=== PATIENT | female | born 1950 | race Two or more races ===

== ENCOUNTER → 2022-06-22 | Outpatient (CLI) | payer MEDICARE, BC ==
[~2022-06-22] VITALS: Ht 1 cm; Wt 1.0 kg
[~2022-06-22] MED LIST: cloNIDine HCL 0.1 MG TAB ONE; cloNIDine HCL 0.1 MG TAB PO ONE
[2022-06-22 11:37] VITALS: BP 206/97
[2022-06-22 14:18] VITALS: BP 154/65
== END | disposition home or self-care (01) ==
LOC: CHF HDHVI 11:42
PROVIDERS: ATTEND Internal Medicine Cardiovascular Disease
DX: I10 Essential (primary) hypertension (principal)
CPT/HCPCS: G0463

== ENCOUNTER → 2022-07-03 | Outpatient (CLI) | payer MEDICARE, BC ==
[~2022-07-03] VITALS: Ht 162.6 cm; Wt 63.0 kg
== END | disposition short-term general hospital (02) ==
LOC: Rad HDHVI 12:49
PROVIDERS: ATTEND Internal Medicine Cardiovascular Disease
DX: I10 Essential (primary) hypertension (principal); I25.2 Old myocardial infarction; R06.02 Shortness of breath; E78.5 Hyperlipidemia, unspecified; E11.9 Type 2 diabetes mellitus without complications; Z95.1 Presence of aortocoronary bypass graft; Z82.49 Family history of ischemic heart disease and other diseases of the circulatory system; Z79.899 Other long term (current) drug therapy
CPT/HCPCS: 78452; 93017; 96374; A9500

== ENCOUNTER → 2022-07-04 | Outpatient (CLI) | payer MEDICARE, BC | END | disposition home or self-care (01) | LOC: Rad HDHVI 15:49 | PROVIDERS: ATTEND Internal Medicine Cardiovascular Disease | DX: I07.1 Rheumatic tricuspid insufficiency (principal); I11.9 Hypertensive heart disease without heart failure | CPT/HCPCS: 93306 ==

== ENCOUNTER → 2023-05-13 | Outpatient (CLI) | payer MEDICARE, BC ==
[~2023-05-13] MED LIST changes: +ISOS60TA24 PO; +METF-370 PO; +SACU1TAB7 PO; -cloNIDine HCL 0.1 MG TAB ONE; -cloNIDine HCL 0.1 MG TAB PO ONE
[2023-05-13 14:00] VITALS: BP 198/87; PULSE 68; RESP 16; O2SAT 98
[2023-05-13 14:22] VITALS: BP 196/87; PULSE 69; RESP 18; O2SAT 98
== END | disposition home or self-care (01) ==
LOC: CHF HDHVI 13:52
PROVIDERS: ATTEND Internal Medicine Cardiovascular Disease
DX: Z01.818 Encounter for other preprocedural examination (principal); R94.31 Abnormal electrocardiogram [ECG] [EKG]; I25.118 Atherosclerotic heart disease of native coronary artery with other forms of angina pectoris; R06.02 Shortness of breath; I10 Essential (primary) hypertension; R00.2 Palpitations
CPT/HCPCS: 93005; G0463

== ENCOUNTER 2023-05-16 07:41 | Day surgery (SDC) | payer MEDICARE, BC ==
[2023-05-13 16:21] LABS: Basophils # (auto) 0.1 10 ^3/uL (0-0.2); Basophils % (auto) 0.8 % (0.0-2.0); Eosinophils # (auto) 0.6 10 ^3/uL (0-0.8); Eosinophils % (auto) 5.7 % (0.0-7.0); Hemoglobin 11.4 g/dL (12.2-16.2); Lymphocytes # (auto) 2.7 10 ^3/uL (0.4-5.4); Lymphocytes % (auto) 27.6 % (10.0-50.0); Mean Corpuscular Hemoglobin 29.6 pg (28.0-32.0); Mean Corpuscular Hgb Conc. 33.6 g/dL (32.0-36.0); Monocytes # (auto) 0.7 10 ^3/uL (0-1.3); Monocytes % (auto) 7.2 % (0.0-12.0); Neutrophils # (auto) 5.8 10 ^3/uL (1.6-8.6); Neutrophils % (auto) 58.7 % (37.0-80.0); Red Blood Cells 3.86 10^6/uL (4.0-5.20); Red Cell Distribution Width 12.2 % (11.8-14.3); White Blood Cell 9.8 10^3/uL (4.4-10.8)
[2023-05-13 16:33] LABS: INR 0.99 (0.9-1.15); Partial Thromboplastin Time 27.1 SEC (24.5-34.5); Prothrombin Time 10.4 sec (9.3-11.8)
[2023-05-13 16:48] LABS: Alanine Aminotransferase 10 U/L (7-40); Albumin 4.2 g/dL (3.2-4.8); Alkaline Phosphatase 60 U/L (46-116); Anion Gap 7 (5-15); Aspartate Aminotransferase 11 U/L (13-40); BUN/Creatinine Ratio 22.1 (10.0-20.0); Bilirubin, Total 0.5 mg/dL (0.2-1.0); Blood Urea Nitrogen 17 mg/dL (9-23); Calcium 9.9 mg/dL (8.5-10.1); Carbon Dioxide 26 mmol/L (20-30); Chloride 110 mmol/L (98-107); Glucose 139 mg/dL (74-106); Potassium 4.5 mmol/L (3.5-5.1); Sodium 143 mmol/L (136-145); Total Protein 6.6 g/dL (5.7-8.2)
[2023-05-16] VITALS (9 sets, daily range): BP systolic 148–176; BP diastolic 53–75; PULSE 75–84; RESP 12–16; TEMP 98.4; O2SAT 92–96
[~2023-05-16] VITALS: Ht 162.6 cm; Wt 67.1 kg
[2023-05-16] MEDS ORDERED: LIDOCAINE 2%HCL (LOCAL ANESTH.) INJ 20ML MDV ONE (11:39)
[2023-05-16] MEDS ORDERED: IOHEXOL 350 MG/ML 100ML IJ ONE (11:39)
[2023-05-16] MEDS ORDERED: fentaNYL CITRATE 100 MCG/2 ML VL ONE (11:43)
[2023-05-16] MEDS ORDERED: ANGIOMAX 250 MG VIAL IV ONE (11:43)
[2023-05-16] MEDS ORDERED: MIDAZOLAM HCL 2MG/2ML 2ml VIAL (1mg/ml) ONE (11:43)
[2023-05-16] MEDS ORDERED: SODIUM CHL 0.9% 0 ML ONE (11:43)
[2023-05-16] MEDS ORDERED: NITROGLYCERIN 0.4MG/DOSE SPRAY 4.9GM ONE (12:05)
[2023-05-16] MEDS ORDERED: hydrALAZINE HCL 20 MG/ML VL ONE (12:13)
== END 2023-05-16 14:52 | disposition home or self-care (01) ==
LOC: CATH 07:41
PROVIDERS: ATTEND Internal Medicine Cardiovascular Disease
DX: I25.10 Atherosclerotic heart disease of native coronary artery without angina pectoris (principal); I25.2 Old myocardial infarction; I73.9 Peripheral vascular disease, unspecified; Z95.5 Presence of coronary angioplasty implant and graft; Z88.8 Allergy status to other drugs, medicaments and biological substances; Z87.891 Personal history of nicotine dependence
CPT/HCPCS: 36252; 36415; 80053; 85025; 85610; 85730; 93458; C1894; J0360; J1644; J2250; J3010; Q9967; 99152

== ENCOUNTER → 2023-11-27 | Outpatient (CLI) | payer MEDICARE, BC ==
[~2023-11-27] MED LIST changes: +ISOS1TAB29 PO; -ISOS60TA24 PO
== END | disposition home or self-care (01) ==
LOC: Rad HDHVI 14:31
PROVIDERS: ATTEND Internal Medicine Cardiovascular Disease
DX: I65.23 Occlusion and stenosis of bilateral carotid arteries (principal); I10 Essential (primary) hypertension; E78.5 Hyperlipidemia, unspecified; E11.9 Type 2 diabetes mellitus without complications
CPT/HCPCS: 93880

== ENCOUNTER → 2023-12-03 | Outpatient (CLI) | payer MEDICARE, BC | END | disposition home or self-care (01) | LOC: Rad HDHVI 14:01 | PROVIDERS: ATTEND Internal Medicine Cardiovascular Disease | DX: I51.7 Cardiomegaly (principal); R06.02 Shortness of breath | CPT/HCPCS: 93306 ==

== ENCOUNTER → 2023-12-09 | Outpatient (CLI) | payer MEDICARE, BC ==
[~2023-12-09] VITALS: Ht 162.6 cm; Wt 67.1 kg
[~2023-12-09] MED LIST changes: +ADENOSINE 56 MG in GIVE UN-DILUTED 0 ML IV ONE; +ADENOSINE 90 MG/30 ML INJ IV ONE
[2023-12-09] MEDS: cloNIDine HCL 0.1 MG TAB PO ONE (15:41)
[2023-12-09] MEDS: cloNIDine HCL 0.1 MG TAB ONE (15:42)
== END | disposition home or self-care (01) ==
LOC: Rad HDHVI 13:55
PROVIDERS: ATTEND Internal Medicine Cardiovascular Disease
DX: I11.0 Hypertensive heart disease with heart failure (principal); I50.43 Acute on chronic combined systolic (congestive) and diastolic (congestive) heart failure; I25.2 Old myocardial infarction; E11.9 Type 2 diabetes mellitus without complications; E78.00 Pure hypercholesterolemia, unspecified; I34.0 Nonrheumatic mitral (valve) insufficiency; I25.5 Ischemic cardiomyopathy; I25.10 Atherosclerotic heart disease of native coronary artery without angina pectoris; Z82.49 Family history of ischemic heart disease and other diseases of the circulatory system; Z95.1 Presence of aortocoronary bypass graft
CPT/HCPCS: 78452; 93005; 96374; 96375; A9500; J0153

== ENCOUNTER 2024-07-28 18:15 | Inpatient (IN) | payer MEDICARE, BC ==
[~2024-07-28] VITALS: Ht 162.6 cm; Wt 67.7 kg
[~2024-07-28 18:15] MED LIST changes: -ADENOSINE 56 MG in GIVE UN-DILUTED 0 ML IV ONE; -ADENOSINE 90 MG/30 ML INJ IV ONE; +CLOP75TA28 PO; +HYDR-4798 PO; +ISOS1TAB28 PO; +METF-372 PO; +NIFE1TAB36 PO; +OMEP-448 PO; +THYR60TA PO
[2024-07-28 18:29] VITALS: PULSE 97; RESP 18; O2SAT 100
--- NOTE | 2024-07-28 18:43 | ED.PDOC ---
General HPI Comments 73 year old female presents to the ED with a chief complaint of LT flank pain onset 2 days. Patient states she has been experiencing LT flank pain for the past 2 days, noticed it worsen today around 15:00. She took Mousie, did not improve pain, states she experienced similar pain in the past when she had kidney stones. BP upon arrival 203/84, states she took HTN medication about 5 minutes prior to ED arrival. PMHx HTN, DM, kidney stones, hypothyroid. Denies nausea, vomiting, diarrhea, dysuria, hematuria, dizziness, headache, chest pain, shortness of breath. No other symptoms or modifying factors present at this time. Chief Complaint: Flank Pain Time Seen by MD: 18:24 Reviewed notes: Medications, Allergies Allergies: Coded Allergies: Epinephrine (Verified Allergy, Unknown, 07/03/22) Home Meds Reported Medications Sacubitril-Valsartan (Entresto 49-51 mg) 1 Tab Tab, 2 TAB PO BID for HTN, TAB 05/13/23 Isosorbide Mononitrate (Isosorbide Mononitrate Er) 60 Mg Tab, 60 MG PO DAILY for htn, MG 05/13/23 Metformin Hydrochloride (Metformin Hcl) 500 Mg Tab, 1000 MG PO BID for 30 Days, MG 05/13/23 Information Source: Patient Mode of Arrival: Ambulatory Severity: Moderate Timing: Days Duration: Since onset Prehospital treatment: Pain Meds (norco) Onset: Spontaneous Symptoms: Other (flank pain) History of: Kidney stone Location: (L)Flank Modifying factors: None associated signs and symptoms: Flank Pain Past Medical History PAST MEDICAL HISTORY: DM, HTN, Kidney Stones, Thyroid Surgical History: Hysterectomy FOOD SERVICE SPECIALIST History: No Pertinent FOOD SERVICE SPECIALIST History Family History Family History: Reviewed,noncontributory to illness, No family hx of Cancer, No family hx of DM, No family hx of Heart angélica, No family hx of HTN, No family hx of Kidney angélica, No family hx of Liver angélica, No family hx of Lung angélica, No family hx of Stroke Social History Smoker: Non-Smoker Alcohol: Denies ETOH Use Drugs: Denies Drug Use Lives In: Home Constitutional: denies: chills, diaphoresis, fatigue, fever, malaise, sweats, weakness, others EENTM: denies: blurred vision, double vision, ear bleeding, ear discharge, ear drainage, ear pain, ear ringing, eye pain, eye redness, hearing loss, mouth pain, mouth swelling, nasal discharge, nose bleeding, nose congestion, nose pain, photophobia, tearing, throat pain, throat swelling, voice changes, others Respiratory: denies: cough, hemoptysis, orthopnea, SOB at rest, shortness of breath, SOB with excertion, stridor, wheezing, others Cardiovascular: denies: chest pain, dizzy spells, diaphoresis, Dyspnea on exertion, edema, irregular heart beat, left arm pain, lightheadedness, palpitations, PND, syncope, others Gastrointestinal: denies: abdomen distended, abdominal pain, blood streaked bowels, constipated, diarrhea, dysphagia, difficulty swallowing, hematemesis, melena, nausea, poor appetite, poor fluid intake, rectal bleeding, rectal pain, vomiting, others Genitourinary: reports: flank pain; denies: abnormal vagina bleeding, burning, dyspareunia, dysuria, frequency, hematuria, incontinence, pain, , vagina discharge, urgency, others Neurological: denies: dizziness, fainting, headache, left sided numbness, left sided weakness, numbness, paresthesia, pre-existing deficit, right sided numbness, right sided weakness, seizure, speech problems, tingling, tremors, weakness, others Musculoskeletal: denies: back pain, gout, joint pain, joint swelling, muscle pain, muscle stiffness, neck pain, others Integumetry: denies: bruises, change in color, change in hair/nails, dryness, laceration, lesions, lumps, rash, wounds, others Allergic/Immunocompromised: denies: Difficulty Healing, Frequent Infections, Hives, Itching, others Hematologic/Lymphatic: denies: anemia, blood clots, easy bleeding, easy bruising, swollen glands, others Endocrine: denies: excessive hunger, excessive sweating, excessive thirst, excessive urination, flushing, intolerance to cold, intolerance to heat, unexplained weight gain, unexplained weight loss, others Psychiatric: denies: anxiety, bipolar disorder, depression, hopeless, panic disorder, schizophrenia, sleepless, suicidal, others All Other Systems: Reviewed and Negative Physical Exam General Appearance: Mild Distress, Obese HEENT: Other (pupils symmetric, no facial asymmetry, moist mucous membranes) Neck: Full Range of Motion, Normal Inspection Respiratory: Lungs Clear, No Accessory Muscle Use, No Respiratory Distress, Normal Breath Sounds Cardiovascular: No Edema, No JVD, Regular Rate/Rhythm Breast Exam: Deferred Gastrointestinal: Tenderness (L upper flank tenderness), Other Genitalia: Deferred Pelvic: Deferred Rectal: Deferred Extremities: Normal inspection, Normal range of motion, Non-tender, No pedal edema Neurologic: Alert (oriented x 4) Cerebellar Function: NOT DONE Reflexes: NOT DONE Skin: Dry, Normal Color, Warm Lymphatic: NOT DONE Was a procedure done? Was a procedure done?: No Differential Diagnosis Kidney stone (Female): Aortic dissection, Pancreatitis, Renal failure, Urinary obstruction, Urolithiasis Urinary Problem (Female): Pyelonephritis, UTI X-Ray, Labs, Meds, VS Vital Signs Date Time Temp Pulse Resp B/P (MAP) Pulse Ox O2 Delivery O2 Flow Rate FiO2 07/28/24 20:38 86 20 218/88 07/28/24 20:38 98.8 86 20 218/88 (131) 96 98.8 07/28/24 20:38 86 20 96 Room Air 07/28/24 18:29 97.7 97 18 203/84 (123) 100 97.7 07/28/24 18:29 97.7 97 18 203/84 (123) 100 07/28/24 18:29 97 18 100 Room Air* 0 21 Lab Test 07/28/24 18:49 07/28/24 18:26 Range/Units White Blood Count 7.7 4.4-10.8 10^3/uL Red Blood Count 4.18 4.0-5.20 10^6/uL Hemoglobin 12.0 L 12.2-16.2 g/dL Hematocrit 36.0 36.0-46.0 % Mean Corpuscular Volume 86.1 80.0-100.0 fL Mean Corpuscular Hemoglobin 28.8 28.0-32.0 pg Mean Corpuscular Hemoglobin Concent 33.5 32.0-36.0 g/dL Red Cell Distribution Width 12.4 11.8-14.3 % Platelet Count 350 140-450 10^3/uL Mean Platelet Volume 7.9 6.9-10.8 fL Neutrophils (%) (Auto) 68.0 37.0-80.0 % Lymphocytes (%) (Auto) 21.0 10.0-50.0 % Monocytes (%) (Auto) 7.2 0.0-12.0 % Eosinophils (%) (Auto) 2.7 0.0-7.0 % Basophils (%) (Auto) 1.1 0.0-2.0 % Neutrophils # (Auto) 5.3 1.6-8.6 10 ^3/uL Lymphocytes # (Auto) 1.6 0.4-5.4 10 ^3/uL Monocytes # (Auto) 0.6 0-1.3 10 ^3/uL Eosinophils # (Auto) 0.2 0-0.8 10 ^3/uL Basophils # (Auto) 0.1 0-0.2 10 ^3/uL Nucleated Red Blood Cells 0.1 % Sodium Level 138 136-145 mmol/L Potassium Level 3.9 3.5-5.1 mmol/L Chloride Level 103 98-107 mmol/L Carbon Dioxide Level 26 20-31 mmol/L Anion Gap 9 5-15 Blood Urea Nitrogen 11 9-23 mg/dL Creatinine 0.95 0.550-1.02 mg/dL Glomerular Filtration Rate Calc 62 >90 mL/min BUN/Creatinine Ratio 11.6 10.0-20.0 Serum Glucose 259 H 74-106 mg/dL Calcium Level 10.5 H 8.7-10.4 mg/dL Urine Color Straw Yellow Urine Clarity Clear Clear Urine pH 6.0 5.0-9.0 Urine Specific Wagoner 1.007 1.001-1.035 Urine Protein 3+ H Negative Urine Ketones Negative Negative Urine Blood 1+ H Negative /uL Urine Nitrite Negative Negative Urine Bilirubin Negative Negative Urine Urobilinogen Normal Negative mg/dL Urine Leukocyte Esterase Negative Negative /uL Urine RBC 2 0 - 4 /hpf Urine Microscopic WBC 1 0-5 /HPF Urine Squamous Epithelial Cells None seen <5 /hpf Urine Bacteria None seen None Seen /hpf Urine Glucose 2+ H Normal mg/dL Current Medications Medications (Trade) Dose Ordered Sig/Bree Route Start Time Stop Time Status Last Admin Morphine Sulfate 8 mg ONCE ONCE IV 07/28/24 18:45 07/28/24 18:46 DC 07/28/24 20:38 Ondansetron HCl (Zofran) 4 mg ONCE ONCE IV 07/28/24 18:45 07/28/24 18:46 DC 07/28/24 20:37 [facility] [id number] [place] [id number] Ph: [phone] DIAGNOSTIC IMAGING Diagnostic Imaging Report : [id number] Signed PATIENT: DARIUS JEFF ACCT: [id number] UNIT: [id number] : 1950 LOC: ER ROOM / BED: / AGE / SEX: 73 / F ADM STATUS: REG ER SERVICE 37 ORDERING PHYSICIAN: MONI CHAPMAN MD PROCEDURE(s): ABPL - CT AB PEL WO CON-NO ORAL OR IV REASON: L flank pain ORDER NUMBER(s): [id number], ACCESSION NUMBER(s): [id number] Exam: CT CT AB PEL WO CON-NO ORAL OR IV History: L flank pain Comparison Study: None available at time of dictation. TECHNIQUE: Multidetector CT of the abdomen was performed from lung bases to pubic symphysis. Imaging was performed without IV contrast. Axial, coronal and sagittal multiplanar reformats were obtained from the axial data set by the technologist. Radiation Dose Information: CT Dose: CTDI volume is 7.78 mGy. Dose-length product is 416.56 mGy*cm. FINDINGS: Evaluation of solid organs is limited due to lack of intravenous contrast use. Findings: Lung Bases: No acute or significant lung base finding. Normal heart size. No pleural or pericardial effusion. Sternal wire sutures in place. Liver: The liver is normal in size. No focal lesions. Gallbladder and Biliary Tree: Cholelithiasis Spleen: Unremarkable Pancreas: The pancreas is grossly normal in appearance. Adrenal Glands: Unremarkable Kidneys: Kidneys are grossly normal without calculi or hydronephrosis. Bladder: Grossly unremarkable for degree of distention. Bowel: The stomach is grossly normal in appearance. Small bowel and colon are normal in caliber and distribution. The appendix is not visualized; however, no secondary findings of acute appendicitis identified. Ascites: Absent Lymphadenopathy: No mesenteric, retroperitoneal or periportal lymphadenopathy. Abdominal Wall and Mesentery: Unremarkable. Vasculature: The visualized abdominal aorta is normal in size and caliber. Evaluation of abdominal and pelvic vessels is limited due to lack of intravenous contrast. Pelvic Organs: Unremarkable Musculoskeletal: No aggressive focal bony lesions, acute fractures or dislocation. Soft tissues: Unremarkable IMPRESSION: 1. Cholelithiasis 2. Radiation optimization: All CT scans at this facility use at least one of these dose optimization techniques: automated exposure control mA and/or kV adjustment per patient size (includes targeted exams where dose is matched to clinical indication) or iterative reconstruction. HS:Y ATED BY: KAYLAH BERGERON Jr., DO DICTATED DATE/TIME: 07/28/241928 SIGNED BY: KAYLAH BERGERON Jr., SIGNED DATE/TIME: 07/28/241928 CC: X-Ray, Labs, Meds, VS Comment 73 yo F with h/o htn, dm, cad, thyroid dz and kidney stones c/o L flank pain despite taking Mousie at home vs remarkable for bp 203/84 exam remarkable for L upper flank tenderness to palpation ct ab/pel: IMPRESSION: 1. Cholelithiasis CBC unremarkable, BMP remarkable for glucose 259, UA protein, blood and glucose pt treated with the following in ED: morphine 8mg IV, zofran 4mg IV with transient improvement of pain. vs stable, bp improving. On re-evaluation, patient states pain is coming back, so Dilaudid 1 mg IV was ordered. plan is to admit for pain control Time of 1ST Reevaluation: 18:54 Reevaluation 1ST: Unchanged Patient Education/Counseling: Diagnosis, Treatment, Prognosis Family Education/Counseling: No Family Present Additional Information The following tests were ordered, and results were reviewed by me: CBC, UA, CT AB PEL WO CONTRAST, BMP I reviewed and agreed with the following test results read by other providers: CT AB PEL WO CONTRAST, I discussed treatment and results with medical personnel and: patient Departure 1 Departure Time of Disposition: 21:27 Impression: Primary Impression: Left flank pain Additional Impression: Intractable pain Disposition: ADMITTED INPATIENT Admit to: Med Surg Condition: Fair Critical Care Note Critical Care Time?: No Stability Stability form required: No Heart Score Heart Score: Heart Score Response (Comments) Value History N/A 0 EKG N/A 0 Age N/A 0 Risk Factors N/A 0 Troponin N/A 0 Total 0 I personally scribed for MONI CHAPMAN MD ([email or web address]) on 07/28/24 at 18:43. Electronically submitted by Alana William ([email or web address]). I personally scribed for MON[facility] CHAPMAN MD ([facility] on 07/28/24 at 20:16. Electronically submitted by Alana William ([email or web address]). I personally scribed for MONI CHAPMAN MD ([email or web address]) on 07/28/24 at 20:17. Electronically submitted by Alana William ([email or web address]). I personally scribed for MONI CHAPMAN MD ([facility] on 07/28/24 at 20:25. Electronically submitted by Alana William ([email or web address]). I personally scribed for MONI CHAPMAN MD ([facility]) on 07/28/24 at 20:58. Electronically submitted by Alana William ([email or web address]). MONI CHAPMAN MD Jul 28, 2024 18:43
[2024-07-28 19:02] LABS: Basophils # (auto) 0.1 10 ^3/uL (0-0.2); Basophils % (auto) 1.1 % (0.0-2.0); Eosinophils # (auto) 0.2 10 ^3/uL (0-0.8); Eosinophils % (auto) 2.7 % (0.0-7.0); Lymphocytes # (auto) 1.6 10 ^3/uL (0.4-5.4); Mean Corpuscular Hemoglobin 28.8 pg (28.0-32.0); Mean Corpuscular Hgb Conc. 33.5 g/dL (32.0-36.0); Mean Corpuscular Volume 86.1 fL (80.0-100.0); Monocytes # (auto) 0.6 10 ^3/uL (0-1.3); Monocytes % (auto) 7.2 % (0.0-12.0); Neutrophils # (auto) 5.3 10 ^3/uL (1.6-8.6); Nucleated Red Blood Cells % 0.1 %; Platelet Count (auto) 350 10^3/uL (140-450); Red Blood Cells 4.18 10^6/uL (4.0-5.20); Red Cell Distribution Width 12.4 % (11.8-14.3); White Blood Cell 7.7 10^3/uL (4.4-10.8)
[2024-07-28 19:08] LABS: Chloride 103 mmol/L (98-107); Potassium 3.9 mmol/L (3.5-5.1); Sodium 138 mmol/L (136-145)
[2024-07-28 19:09] LABS: Anion Gap 9 (5-15); Carbon Dioxide 26 mmol/L (20-31)
[2024-07-28 19:14] LABS: BUN/Creatinine Ratio 11.6 (10.0-20.0); Blood Urea Nitrogen 11 mg/dL (9-23)
[2024-07-28 19:18] LABS: Calcium 10.5 mg/dL (8.7-10.4); Glucose 259 mg/dL (74-106)
--- NOTE | 2024-07-28 19:32 | DVH ---
Exam: CT CT AB PEL WO CON-NO ORAL OR IV History: L flank pain Comparison Study: None available at time of dictation. TECHNIQUE: Multidetector CT of the abdomen was performed from lung bases to pubic symphysis. Imaging was performed without IV contrast. Axial, coronal and sagittal multiplanar reformats were obtained fr om the axial data set by the technologist. Radiation Dose Information: CT Dose: CTDI volume is 7.78 mGy. Dose-length product is 416.56 mGy*cm. FINDINGS: Evaluation of solid organs is limited due to lack of intravenous contrast use. Findings: Lung Bases: No acute or significant lung base finding. Normal heart size. No pleural or pericardial effusion. Sternal wire sutures in place. Liver: The liver is normal in size. No focal lesions. Gallbladder and Biliary Tree: Cholelithiasis Spleen: Unremarkable Pancreas: The pancreas is grossly normal in appearance. Adrenal Glands: Unremarkable Kidneys: Kidneys are grossly normal without calculi or hydronephrosis. Bladder: Grossly unremarkable for degree of distention. Bowel: The stomach is grossly normal in appearance. Small bowel and colon are normal in caliber and d istribution. The appendix is not visualized; however, no secondary findings of acute appendicitis id entified. Ascites: Absent Lymphadenopathy: No mesenteric, retroperitoneal or periportal lymphadenopathy. Abdominal Wall and Mesentery: Unremarkable. Vasculature: The visualized abdominal aorta is normal in size and caliber. Evaluation of abdominal a nd pelvic vessels is limited due to lack of intravenous contrast. Pelvic Organs: Unremarkable Musculoskeletal: No aggressive focal bony lesions, acute fractures or dislocation. Soft tissues: Unremarkable IMPRESSION: 1. Cholelithiasis 2. Radiation optimization: All CT scans at this facility use at least one of these dose optimization te chniques: automated exposure control mA and/or kV adjustment per patient size (includes targeted exa ms where dose is matched to clinical indication) or iterative reconstruction. HS:Y
[2024-07-28 19:40] LABS: Urine Bacteria None Seen /hpf (None Seen)
[2024-07-28 19:49] LABS: Urine Blood 1+ /uL (Negative); Urine Clarity Clear (Clear); Urine Protein, UAD 3+ (Negative); Urine Specific Gravity 1.007 (1.001-1.035); Urine Squamous Epithelial Cell None Seen /hpf (<5); Urine Urobilinogen Normal (Negative); Urine WBC 1 /HPF (0-5)
[2024-07-28 20:11] LABS: Urine Color STRAW (Yellow)
[2024-07-28] MEDS: ONDANSETRON HCL 4 MG/2 ML VIAL IV ONE (20:37)
[2024-07-28] MEDS: MORPHINE SULFATE 4 MG/ML SYR/VIAL IV ONE (20:38)
[2024-07-28] MEDS: HYDROcodone-ACET 7.5/325MG TAB PO ONE (22:15)
[2024-07-28] MEDS: hydrALAZINE HCL 20 MG/ML VL IV ONE (22:30)
--- NOTE | 2024-07-28 22:49 | DVH ---
Date: 07/28/2024 10:41 PM Examination: XY KUB ABDOMEN SINGLE VIEW History: rule out kidnsy stones Comparison: None TECHNIQUE: Frontal views of the abdomen was obtained. FINDINGS: Bowel gas pattern is unremarkable with no dilated loops of large or small bowel. No abnormal calcific density identified. No acute osseous abnormality noted. IMPRESSION: Nonobstructive bowel gas pattern. No abnormal calcific density identified.
[2024-07-29] MEDS: HYDROcodone-ACET 7.5/325MG TAB PO ONE
--- NOTE | 2024-07-29 00:08 | DVHHPRES ---
History of Present Illness Resident Creating Document: DEANGELO PABON RESIDENT Reason for Visit: left flank pain History of Present Illness Chief Complaint: Left flank pain for two days, worsening on the day of presentation. History of Present Illness: 73-year-old female with a history of coronary artery bypass grafting, uncontrolled hypertension, diabetes mellitus, kidney stones, and hypothyroidism presents to the emergency department with left flank pain for the past week, which worsened around 15:00 on the day of admission. The pain was not relieved with Elliott taken at home. She has a history of kidney stones with similar pain in the past. No associated nausea, vomiting, diarrhea, dysuria, hematuria, chest pain, or shortness of breath. On arrival, BP was 203/84 mmHg. She took her home antihypertensive medication just prior to ED arrival. Past Medical History: Cardiovascular: Coronary artery bypass grafting (CABG), hypertension (poorly controlled) Endocrine: Diabetes mellitus, hypothyroidism Renal: History of kidney stones Other: No significant gynecologic history Past Surgical History: Coronary artery bypass grafting (CABG) Medications at Home: Sacubitril/Valsartan (Entresto) 100 mg PO Nifedipine 30 mg PO Isosorbide Mononitrate 30 mg PO Clopidogrel 75 mg PO Metformin 1000 mg PO BID Allergies: Epinephrine Family History: No known family history of cardiovascular disease, hypertension, diabetes, kidney disease, liver disease, lung disease, or stroke. Social History: Smoking: Never smoker Alcohol Use: Denies Illicit Drug Use: Denies Review of Systems Constitutional: No: Fever, Chills, Sweats, Weakness, Malaise, Other Eyes: No: Pain, Vision change, Conjunctivae inflammation, Eyelid inflammation, Other, Redness ENT: No: Ear pain, Ear discharge, Nose pain, Nose discharge, Nose congestion, Mouth pain, Mouth swelling, Throat pain, Throat swelling, Other Respiratory: No: Cough, Dry, Shortness of breath, SOB with excertion, Wheezing, Hemoptysis, Pleuritic Pain, Sputum, Wheezing, Other Cardiovascular: No: Chest Pain, Palpitations, Orthopnea, Paroxysmal Noc. Dyspnea, Edema, Lt Headedness, Other Gastrointestinal: No: Nausea, Vomiting, Abdominal Pain, Diarrhea, Constipation, Melena, Hematochezia, Other Genitourinary: No Dysuria, No Frequency, No Incontinence, No Hematuria, No Retention, No Other Musculoskeletal: No: other, neck pain, shoulder pain, arm pain, back pain, hand pain, leg pain, foot pain Skin: No: Rash, Lesions, Jaundice, Bruising, Other Neurological: No: Weakness, Numbness, Incoordination, Change in speech, Confusion, Seizures, Other Allergies: Coded Allergies: Epinephrine (Verified Allergy, Unknown, 07/03/22) Medications Current Medications Medications Dose Ordered Sig/Bree Route Start Time Stop Time Status Last Admin Dose Admin Sacubitril/ Valsartan 2 tab BID PO 07/29/24 00:00 Nifedipine 30 mg BID PO 07/29/24 10:00 Isosorbide Mononitrate 30 mg BID PO 07/29/24 10:00 UNV Exam Vital Signs Vital Signs Date Time Temp Pulse Resp B/P (MAP) Pulse Ox O2 Delivery O2 Flow Rate FiO2 07/28/24 21:07 83 16 196/86 07/28/24 20:38 98.8 96 98.8 07/28/24 20:38 Room Air 07/28/24 18:29 0 21 General Appearance: Alert, Oriented X3, Cooperative, No acute distress HEENT: Atraumatic, PERRLA, EOMI, Mucous membr. moist/pink Respiratory: Clear to auscultation, Normal air movement Cardiovascular: Regular rate, Normal S1, Normal S2, Other (sternotomy scar) Abdominal: Normal bowel sounds, Soft Extremities: No clubbing, No cyanosis, No edema Skin: No rashes, No breakdown, No significant lesion Neuro: Normal gait, Normal speech, Strength at 5/5 X4 ext Psych/Mental Status: Mental status NL, Mood NL Labs/Xrays Labs Test 07/28/24 18:49 07/28/24 18:26 Range/Units White Blood Count 7.7 4.4-10.8 10^3/uL Red Blood Count 4.18 4.0-5.20 10^6/uL Hemoglobin 12.0 L 12.2-16.2 g/dL Hematocrit 36.0 36.0-46.0 % Mean Corpuscular Volume 86.1 80.0-100.0 fL Mean Corpuscular Hemoglobin 28.8 28.0-32.0 pg Mean Corpuscular Hemoglobin Concent 33.5 32.0-36.0 g/dL Red Cell Distribution Width 12.4 11.8-14.3 % Platelet Count 350 140-450 10^3/uL Mean Platelet Volume 7.9 6.9-10.8 fL Neutrophils (%) (Auto) 68.0 37.0-80.0 % Lymphocytes (%) (Auto) 21.0 10.0-50.0 % Monocytes (%) (Auto) 7.2 0.0-12.0 % Eosinophils (%) (Auto) 2.7 0.0-7.0 % Basophils (%) (Auto) 1.1 0.0-2.0 % Neutrophils # (Auto) 5.3 1.6-8.6 10 ^3/uL Lymphocytes # (Auto) 1.6 0.4-5.4 10 ^3/uL Monocytes # (Auto) 0.6 0-1.3 10 ^3/uL Eosinophils # (Auto) 0.2 0-0.8 10 ^3/uL Basophils # (Auto) 0.1 0-0.2 10 ^3/uL Nucleated Red Blood Cells 0.1 % Sodium Level 138 136-145 mmol/L Potassium Level 3.9 3.5-5.1 mmol/L Chloride Level 103 98-107 mmol/L Carbon Dioxide Level 26 20-31 mmol/L Anion Gap 9 5-15 Blood Urea Nitrogen 11 9-23 mg/dL Creatinine 0.95 0.550-1.02 mg/dL Glomerular Filtration Rate Calc 62 >90 mL/min BUN/Creatinine Ratio 11.6 10.0-20.0 Serum Glucose 259 H 74-106 mg/dL Calcium Level 10.5 H 8.7-10.4 mg/dL Urine Color Straw Yellow Urine Clarity Clear Clear Urine pH 6.0 5.0-9.0 Urine Specific Paulina 1.007 1.001-1.035 Urine Protein 3+ H Negative Urine Ketones Negative Negative Urine Blood 1+ H Negative /uL Urine Nitrite Negative Negative Urine Bilirubin Negative Negative Urine Urobilinogen Normal Negative mg/dL Urine Leukocyte Esterase Negative Negative /uL Urine RBC 2 0 - 4 /hpf Urine Microscopic WBC 1 0-5 /HPF Urine Squamous Epithelial Cells None seen <5 /hpf Urine Bacteria None seen None Seen /hpf Urine Glucose 2+ H Normal mg/dL Assessment/Plan Assessment/Plan Imaging & Labs: CT Abdomen/Pelvis (without contrast): Cholelithiasis noted. No evidence of hydronephrosis or acute obstruction. KUB: normal CBC: Unremarkable BMP: Glucose 259, otherwise unremarkable UA: Protein, blood, and glucose present Assessment & Plan: 73-year-old female with a history of CABG, uncontrolled hypertension, diabetes, and kidney stones presenting with left flank pain. #Left flank pain: Monitor for signs of worsening pain, fever, or obstruction. Pain management with Morphine 8 mg IV initially, later required Dilaudid 1 mg IV for persistent pain. UA: blood, protein present: urine culture ordered #Hypertensive urgency (203/84 on arrival) Already on multiple antihypertensives (Entresto, Nifedipine, Isosorbide). Blood pressure improved slightly in ED; continue close monitoring. Hydralazine IV given Clonidine added Labetalol PRN #Cholelithiasis (incidental finding on CT scan) No acute cholecystitis findings. F/u outpatient #Diabetes mellitus (elevated glucose 259 in ED) hba1c ordered mild insulin sliding scale #Hypercalcemia Pending CMP am f/u outpatient Disposition: Admit to Med-Surg for further pain management and blood pressure control. Dr Gonzalez PCP consulted Case discussed with Dr Zapien Time spent on care 23 min Plan discussed with: Patient, Other (rn) My Orders Orders - DEANGELO PABON RESIDENT Procedure Category Date Status Time Admit ADMIT 07/28/24 Transmitted 22:02 *Cons[address] Dr[address] Gonzalez CONS 07/28/24 Transmitted [place] 22:02 Kub Abdomen Single XY 07/28/24 Resulted View 22:02 Cardiac DIET 07/29/24 Transmitted Diet-2gna,Lofat,Lochol Breakfast Sacubitril-Valsartan PHA 07/29/24 In Process (Entresto 24-26 Mg 00:00 Nifedipine Er PHA 07/29/24 In Process (Procardia Xl 10:00 Isosorbide PHA 07/29/24 Pending Mononitrate Tablet 10:00 Date of Service: Jul 28, 2024 Billing Provider: ANTONI ZAPIEN MD Common Visit Codes: [id number] INP/OBS CARE (HIGH) DEANGELO PABON RESIDENT Jul 29, 2024 00:08 ANTONI ZAPIEN MD Jul 29, 2024 23:55
[2024-07-29] MEDS: cloNIDine HCL 0.1 MG TAB PO SCH (01:00)
[2024-07-29] MEDS ORDERED: LABETALOL HCL 20 MG/4 ML VL IV PRN (01:00)
[2024-07-29] MEDS: SACUBITRIL-VALSARTAN 24mg/26mg TAB PO SCH (03:22)
[2024-07-29] MEDS: CLOPIDOGREL BISULFATE 75 MG TAB PO ONE (03:22)
[2024-07-29 03:37] VITALS: BP 134/61; PULSE 72; RESP 18; TEMP 97.8; O2SAT 97
[2024-07-29] MEDS: HYDROMORPHONE HCL 1 MG/ML INJ IV ONE (03:48)
[2024-07-29] MEDS: ACCU-CHEK COMFORT CURVE STRIP VI ONE (04:59)
[2024-07-29] MEDS: InsuLIN REG 1unit/0.01ml Soln (100units/ml) SC ONE (05:04)
[2024-07-29] MEDS: DEXTROSE (50%) 50ML SYRG IV ONE (05:06)
[2024-07-29 08:51] VITALS: BP 141/55; PULSE 74; RESP 16; TEMP 98.4; O2SAT 96
[2024-07-29] MEDS: KETOROLAC TROMETH 30 MG/ML 1ML VIAL IV PRN (09:15)
[2024-07-29] MEDS: NIFEdipine ER 30 MG TAB PO SCH (09:29)
[2024-07-29] MEDS ORDERED: ISOSORBIDE MONONITRATE ER 60 MG TAB PO SCH (10:00)
[2024-07-29] MEDS: MORPHINE SULFATE INJ 2 MG/ml SYRG IV PRN (12:14)
[2024-07-29] MEDS ORDERED: DEXTROSE (50%) 50ML SYRG IV PRN (12:15)
[2024-07-29] MEDS: ISOSORBIDE MONONITRATE ER 60 MG TAB PO SCH (12:44)
--- NOTE | 2024-07-29 12:51 | DVH ---
RENAL ULTRASOUND CLINICAL HISTORY: left flank pain TECHNIQUE: Multiple ultrasound images of the kidneys and bladder were obtained. COMPARISON: [Comparison] FINDINGS: The right kidney measures 10.9 cm in length. The left kidney measures 11.7 cm. The kidneys demonstrat e appropriate echotexture without evidence of a discrete renal lesion, nephrolithiasis or hydronephro sis. Bladder appears within normal limits with prevoid volume measuring 72 cc. IMPRESSION: 1. Unremarkable renal ultrasound. HS:Y
[2024-07-29] MEDS ORDERED: OMEP-335 PO (12:55)
[2024-07-29] MEDS ORDERED: GLIP5TAB21 PO (12:55)
[2024-07-29 13:00] VITALS: BP 149/54; PULSE 76; RESP 18; TEMP 98.2; O2SAT 97
[2024-07-29 14:00] LABS: Albumin 4.1 g/dL (3.2-4.8); Bilirubin, Direct 0.1 mg/dL (<0.3); Bilirubin, Total 0.5 mg/dL (0.2-1.0); Total Protein 6.3 g/dL (5.7-8.2)
--- NOTE | 2024-07-29 14:19 | DVHPN2 ---
Progress Note - Dictate Date Seen: Jul 29, 2024 Medical Necessity Reason Pt with a Central, PICC or Fol: No Subjective PT WITH LEFT FLANK PAIN UA NEGATIVE POSITIVE CHOLECYSTITIS HX OF CABG DIABETES HTN vital signs Vital Sign Date Time Temp Pulse Resp B/P (MAP) Pulse Ox O2 Delivery O2 Flow Rate FiO2 07/29/24 12:44 76 18 149/54 07/29/24 08:51 98.4 96 98.4 07/29/24 03:37 Room Air* 0 21 Total Intake and Output 07/28/24 07/28/24 07/29/24 15:00 23:00 07:00 Intake Total 240 ml Balance 240 ml medications Current Medications Medications Dose Ordered Sig/Bree Route Start Time Stop Time Status Last Admin Dose Admin Sacubitril/ Valsartan 2 tab BID PO 07/29/24 00:00 07/29/24 09:28 2 TAB Nifedipine 30 mg BID PO 07/29/24 10:00 07/29/24 09:29 30 MG Clonidine HCl 0.2 mg BID PO 07/29/24 01:00 Labetalol HCl 10 mg Q2HPRN PRN IV 07/29/24 01:00 Isosorbide Mononitrate 30 mg DAILY PO 07/29/24 10:00 07/29/24 12:44 30 MG Ketorolac Tromethamine 30 mg Q6HPRN PRN IV 07/29/24 08:45 08/03/24 08:44 07/29/24 09:15 30 MG Morphine Sulfate 2 mg Q4HPRN PRN IV 07/29/24 12:15 07/29/24 12:14 2 MG Diagnostic Test (Pha) 1 strip ACHS 07/29/24 17:00 Insulin Human Regular ACHS SC 07/29/24 17:00 Dextrose 50 ml UD PRN IV 07/29/24 12:15 laboratory and microbiology Laboratory Tests 07/28/24 18:49 Test 07/28/24 18:49 Range/Units Serum Glucose 259 H 74-106 mg/dL Problem List LEFT FLANK PAIN UA NEGATIVE POSITIVE CHOLECYSTITIS HX OF CABG DIABETES HTN Assessment/Plan ABX Plan discussed with: Patient JACKIE GATES MD Jul 29, 2024 14:19
[2024-07-29 17:00] VITALS: BP 163/89; PULSE 76; RESP 18; TEMP 98.2; O2SAT 95
[2024-07-29] MEDS: ACCU-CHEK COMFORT CURVE STRIP VI SCH (17:00)
[2024-07-29] MEDS: InsuLIN REG 1unit/0.01ml Soln (100units/ml) SC SCH (17:07)
[2024-07-29] MEDS ORDERED: cloNIDine HCL 0.1 MG TAB PO PRN (17:45)
[2024-07-29] MEDS: NIFEdipine ER 30 MG TAB PO ONE (18:05)
[2024-07-29 18:22] VITALS: BP 184/92; PULSE 81; RESP 17; TEMP 97.9; O2SAT 97
[2024-07-29 21:00] VITALS: BP 166/63; PULSE 82; RESP 19; TEMP 97.8; O2SAT 98
[2024-07-30] VITALS (7 sets, daily range): BP systolic 125–150; BP diastolic 59–68; PULSE 72–80; RESP 16–19; TEMP 97.8–98.6; O2SAT 95–97
[2024-07-30 06:17] LABS: Alanine Aminotransferase 14 U/L (7-40); Alkaline Phosphatase 70 U/L (46-116); Calcium 10.2 mg/dL (8.7-10.4); Carbon Dioxide 25 mmol/L (20-31); Glucose 86 mg/dL (74-106); Potassium 3.8 mmol/L (3.5-5.1)
[2024-07-30 06:18] LABS: Albumin 4.1 g/dL (3.2-4.8); Anion Gap 10 (5-15); Bilirubin, Total 0.4 mg/dL (0.2-1.0); Blood Urea Nitrogen 13 mg/dL (9-23); Sodium 142 mmol/L (136-145); Total Protein 6.2 g/dL (5.7-8.2)
[2024-07-30 06:28] LABS: Aspartate Aminotransferase 11 U/L (13-40); Chloride 107 mmol/L (98-107)
[2024-07-30] MEDS ORDERED: GLIP-110 PO (09:41)
--- NOTE | 2024-07-30 10:38 | DVHPN2 ---
Progress Note - Dictate Date Seen: Jul 30, 2024 Medical Necessity Reason Pt with a Central, PICC or Fol: No Subjective PT WITH LEFT FLANK PAIN UA NEGATIVE POSITIVE CHOLECYSTITIS HX OF CABG DIABETES HTN vital signs Vital Sign Date Time Temp Pulse Resp B/P (MAP) Pulse Ox O2 Delivery O2 Flow Rate FiO2 07/30/24 10:30 72 16 125/59 07/30/24 09:00 98.2 97 98.2 07/29/24 20:00 Room Air* 0 21 Total Intake and Output 07/29/24 07/29/24 07/30/24 15:00 23:00 07:00 Intake Total 650 ml Balance 650 ml medications Current Medications Medications Dose Ordered Sig/Bree Route Start Time Stop Time Status Last Admin Dose Admin Sacubitril/ Valsartan 2 tab BID PO 07/29/24 00:00 07/30/24 10:24 2 TAB Nifedipine 30 mg BID PO 07/29/24 10:00 07/30/24 10:24 30 MG Isosorbide Mononitrate 30 mg DAILY PO 07/29/24 10:00 07/30/24 10:24 30 MG Ketorolac Tromethamine 30 mg Q6HPRN PRN IV 07/29/24 08:45 08/03/24 08:44 07/29/24 09:15 30 MG Morphine Sulfate 2 mg Q4HPRN PRN IV 07/29/24 12:15 07/30/24 10:30 2 MG Diagnostic Test (Pha) 1 strip ACHS 07/29/24 17:00 07/30/24 06:16 1 STRIP Insulin Human Regular ACHS SC 07/29/24 17:00 07/29/24 21:24 3 UNITS Dextrose 50 ml UD PRN IV 07/29/24 12:15 Clonidine HCl 0.1 mg Q6HP PRN PO 07/29/24 17:45 laboratory and microbiology Laboratory Tests 07/30/24 05:39 07/28/24 18:49 Test 07/30/24 05:39 Range/Units Serum Glucose 86 74-106 mg/dL Problem List LEFT FLANK PAIN UA NEGATIVE POSITIVE CHOLECYSTITIS HX OF CABG DIABETES HTN Assessment/Plan ABX Plan discussed with: Patient JACKIE GATES MD Jul 30, 2024 10:38
--- NOTE | 2024-08-03 16:25 | DVHDS2 ---
Discharge Summary Date of Admission Jul 28, 2024 at 22:02 Date of Discharge: Jul 30, 2024 Admitting Diagnosis FLANK ABD PAIN Labs/Diagnostic Data: Laboratory Results Test 07/30/24 16:48 07/30/24 05:39 07/29/24 04:45 07/28/24 18:49 POC Glucose 60 mg/dl (70-106) Sodium Level 142 mmol/L (136-145) Potassium Level 3.8 mmol/L (3.5-5.1) Chloride Level 107 mmol/L (98-107) Carbon Dioxide Level 25 mmol/L (20-31) Anion Gap 10 (5-15) Blood Urea Nitrogen 13 mg/dL (9-23) Creatinine 1.00 mg/dL (0.550-1.02) Glomerular Filtration Rate Calc 59 mL/min (>90) BUN/Creatinine Ratio 13.0 (10.0-20.0) Serum Glucose 86 mg/dL (74-106) Calcium Level 10.2 mg/dL (8.7-10.4) Total Bilirubin 0.4 mg/dL (0.2-1.0) Aspartate Amino Transferase (AST) 11 U/L (13-40) Alanine Aminotransferase (ALT) 14 U/L (7-40) Alkaline Phosphatase 70 U/L (46-116) Total Protein 6.2 g/dL (5.7-8.2) Albumin 4.1 g/dL (3.2-4.8) Hemoglobin A1c 7.3 % A1C (<5.7) Direct Bilirubin 0.1 mg/dL (<0.3) Thyroid Stimulating Hormone (TSH) 1.39 uIU/mL (0.55-4.78) White Blood Count 7.7 10^3/uL (4.4-10.8) Red Blood Count 4.18 10^6/uL (4.0-5.20) Hemoglobin 12.0 g/dL (12.2-16.2) Hematocrit 36.0 % (36.0-46.0) Mean Corpuscular Volume 86.1 fL (80.0-100.0) Mean Corpuscular Hemoglobin 28.8 pg (28.0-32.0) Mean Corpuscular Hemoglobin Concent 33.5 g/dL (32.0-36.0) Red Cell Distribution Width 12.4 % (11.8-14.3) Platelet Count 350 10^3/uL (140-450) Mean Platelet Volume 7.9 fL (6.9-10.8) Neutrophils (%) (Auto) 68.0 % (37.0-80.0) Lymphocytes (%) (Auto) 21.0 % (10.0-50.0) Monocytes (%) (Auto) 7.2 % (0.0-12.0) Eosinophils (%) (Auto) 2.7 % (0.0-7.0) Basophils (%) (Auto) 1.1 % (0.0-2.0) Neutrophils # (Auto) 5.3 10 ^3/uL (1.6-8.6) Lymphocytes # (Auto) 1.6 10 ^3/uL (0.4-5.4) Monocytes # (Auto) 0.6 10 ^3/uL (0-1.3) Eosinophils # (Auto) 0.2 10 ^3/uL (0-0.8) Basophils # (Auto) 0.1 10 ^3/uL (0-0.2) Nucleated Red Blood Cells 0.1 % Test 07/28/24 18:26 Urine Color Straw (Yellow) Urine Clarity Clear (Clear) Urine pH 6.0 (5.0-9.0) Urine Specific [place] 1.007 (1.001-1.035) Urine Protein 3+ (Negative) Urine Ketones Negative (Negative) Urine Blood 1+ /uL (Negative) Urine Nitrite Negative (Negative) Urine Bilirubin Negative (Negative) Urine Urobilinogen Normal mg/dL (Negative) Urine Leukocyte Esterase Negative /uL (Negative) Urine RBC 2 /hpf (0 - 4) Urine Microscopic WBC 1 /HPF (0-5) Urine Squamous Epithelial Cells None seen /hpf (<5) Urine Bacteria None seen /hpf (None Seen) Urine Glucose 2+ mg/dL (Normal) Other Laboratory Tests 07/30/24 05:39 07/28/24 18:49 Brief Hx & Hospital Course: LEFT FLANK PAIN UA NEGATIVE POSITIVE CHOLECYSTITIS HX OF CABG DIABETES HTN Assessment/Plan ABX NO INFECTION MUSCULAR SKELETAL PAIN Condition at Discharge: Good Final Diagnosis/Problems List MUSCULOSKELETAL PAIN RENOVASCULAR HTN COSTOCHONDRITIS Discharge Disposition: Home Discharge Instruct/Medications Diet: Cardiac 2g Na,low cholest Activity: No Restrictions, As Tolerated Follow Up/Referral: FOLLOW UP IN [address] MEJIA Medications: DR. MEJIA EXPLAINED TO PATIENT MEDICATION INSTRUCTIONS OVER PHONE Discharge Statement: "Patient was advised to return to the ER or call 911 if any headaches, dizziness, shortness of breath, chest pain, abdominal pain, bleeding, fevers, or worsening of medical condition. Patient was counseled about treatment plan, medications, possible side effects, patientverbalized understanding. All questions were answered to the best of my ability. This discharge took greater then 30 minutes in planning, reviewing documentation, counseling the patient, and discussing with other team members." ASSESSMENT ASSESSMENT Assessment MUSCULOSKELETAL PAIN JACKIE GATES MD Aug 03, 2024 16:25
== END 2024-07-30 20:30 | disposition home or self-care (01) | DRG 446 ==
LOC: ER 18:15 → OVERFLOW 22:02 → EAST 07-29 18:18
PROVIDERS: ADMIT Internal Medicine Geriatric Medicine; ATTEND Internal Medicine Geriatric Medicine
DX: K81.9 Cholecystitis, unspecified (principal); M94.0 Chondrocostal junction syndrome [Tietze]; E83.52 Hypercalcemia; I10 Essential (primary) hypertension; E03.9 Hypothyroidism, unspecified; E11.65 Type 2 diabetes mellitus with hyperglycemia; Z79.4 Long term (current) use of insulin; Z90.710 Acquired absence of both cervix and uterus; Z95.1 Presence of aortocoronary bypass graft; Z87.442 Personal history of urinary calculi; I15.0 Renovascular hypertension; R10.9 Unspecified abdominal pain
CPT/HCPCS: 36415; 74018; 74176; 76775; 80048; 80053; 80076; 81001; 82962; 83036; 84443; 85025; 87086; G0378; J1815; J1885; J2405

== ENCOUNTER → 2024-11-20 | Outpatient (CLI) | payer MEDICARE, BC ==
[~2024-11-20] MED LIST changes: +GLIP-110 PO; -ISOS1TAB29 PO; -METF-370 PO
== END | disposition home or self-care (01) ==
LOC: Rad HDHVI 10:57
PROVIDERS: ATTEND Internal Medicine Cardiovascular Disease
DX: I10 Essential (primary) hypertension (principal)
CPT/HCPCS: 93306

== ENCOUNTER 2024-12-31 06:41 | Inpatient (IN) | payer MEDICARE, BC ==
[2024-12-28 11:52] LABS: Hematocrit 34.8 % (36.0-46.0); Hemoglobin 12.1 g/dL (12.2-16.2); Mean Corpuscular Hemoglobin 29.3 pg (28.0-32.0); Mean Corpuscular Volume 84.1 fL (80.0-100.0); Nucleated Red Blood Cells % 0.0 %
[2024-12-28 12:04] LABS: INR 0.97 (0.9-1.15); Partial Thromboplastin Time 27.5 SEC (24.5-34.5); Prothrombin Time 10.3 sec (9.3-11.8)
[2024-12-28 12:11] LABS: Chloride 108 mmol/L (98-107); Potassium 4.9 mmol/L (3.5-5.1); Sodium 139 mmol/L (136-145)
[2024-12-28 12:12] LABS: Anion Gap 9 (5-15); Carbon Dioxide 22 mmol/L (20-31)
[2024-12-28 12:13] LABS: Calcium 10.4 mg/dL (8.7-10.4)
[2024-12-28 12:17] LABS: BUN/Creatinine Ratio 22.2 (10.0-20.0); Blood Urea Nitrogen 22 mg/dL (9-23)
[2024-12-28 12:20] LABS: Glucose 146 mg/dL (74-106)
[2024-12-31] VITALS (12 sets, daily range): BP systolic 82–129; BP diastolic 35–67; PULSE 61–91; RESP 12–18; TEMP 96–98.1; O2SAT 91–99
[~2024-12-31] VITALS: Ht 162.6 cm; Wt 63.9 kg
[~2024-12-31 06:41] MED LIST changes: +ASPI81CH49 PO; +NIFE1TAB31 PO; -NIFE1TAB36 PO
[2024-12-31] MEDS: IOHEXOL 350 MG/ML 100ML IJ ONE ×2 (07:32→09:51)
[2024-12-31] MEDS: ATROPINE SULF 1 MG/10ml SYR ONE (07:43)
[2024-12-31] MEDS: ANGIOMAX 250 MG VIAL IV ONE (07:43)
[2024-12-31] MEDS: fentaNYL CITRATE 100 MCG/2 ML VL ONE (07:43)
[2024-12-31] MEDS: PHENYLEPHRINE HCL 10 MG/ML VL ONE (07:43)
[2024-12-31] MEDS: GLYCOPYRROLATE 0.2 MG/ML 1ML VIAL ONE ×2 (07:43→10:07)
[2024-12-31] MEDS: MIDAZOLAM HCL 2MG/2ML 2ml VIAL (1mg/ml) ONE (07:44)
[2024-12-31] MEDS: SODIUM CHL 0.9% 50 ML ONE (07:44)
[2024-12-31] MEDS: LIDOCAINE 2%HCL (LOCAL ANESTH.) INJ 20ML MDV ONE (07:44)
[2024-12-31] MEDS: NITROGLYCERIN 0.4MG/DOSE SPRAY 4.9GM ONE (09:38)
[2024-12-31] MEDS: HYDROcodone-ACET 10/325MG TAB PO ONE (11:00)
--- NOTE | 2024-12-31 11:12 | DVHOP ---
DATE OF SURGERY: 12/31/2024 PROCEDURES PERFORMED: * Selective left and right carotid angiography. * Selective left and right cerebral angiography. * Angioplasty with stent placement of the right internal carotid artery with thrombectomy with a Shockwave device because of AV calcification. * Conscious sedation was given to the patient. Post surgery there were no complications. Neurological status was intact. DESCRIPTION OF PROCEDURE: The patient was prepped and draped under sterile condition. Xylocaine 1% was used to anesthetize the right groin. Using a Cook needle, right femoral artery was engaged with Seldinger technique, a 6-Austrian sheath to the right femoral artery. Using 6-Austrian JR4 diagnostic catheter, selective left and right carotid and cerebral angiography was performed. Following that, the 6-Austrian diagnostic system was exchanged for a 6-Austrian interventional system. The 6-Austrian sheath was exchanged for an 8-Austrian sheath. Using angled Terumo wire and a 6-Austrian JR4 diagnostic catheter, we were able to cannulate the right common carotid artery. Then, the wire was exchanged for a Supra Core wire. Following that, the 8-Austrian multipurpose guide catheter was used to cannulate the distal right common carotid artery. The Emboshield wire was then deployed distal to the stenosis of the right internal carotid artery followed by the deployment of the Emboshield per protocol. This was followed by dilatation with a 4 mm x 12 mm Shockwave balloon/thrombectomy catheter because of AV calcification. Following the inflation, a 9 x 7 x 30 mm Xact stent was then deployed across the lesion, though no postdilatation required at this time. The patient's neurological status pre and post intervention remain intact. Cerebral angiography remain intact as well. RESULTS: * The patient's left and right common carotid without any flow-restrictive lesion. * Right and left external carotid artery mild intermittent irregularity without any flow-restrictive lesion. * Right internal carotid artery had an 80%-90% ulcerating plaque. Status post angioplasty with stent placement with a 9 x 7 x 30 mm Xact stent with less than 10% residual stenosis. Because of the calcification the thrombectomy device was used. * Left internal carotid artery without any flow-restrictive lesion. * Left and right cerebral angiography pre and post intervention without any flow-restrictive lesion. * Right femoral arteriotomy site was then closed using the Angio-Seal device. CONCLUSION: The patient had successful revascularization of the right internal carotid artery with stent placement with the use of thrombectomy/thrombectomy balloon. Carlos Thurman MD SA/SHARRI TID: [id number] RECEIPT: [id number]
--- NOTE | 2024-12-31 11:21 | DVHHP ---
HISTORY OF PRESENT ILLNESS: The patient is 74 years old with history of a previous myocardial infarction, history of carotid stenosis, now to undergo carotid angiography with possibility of angioplasty. The patient also had coronary artery disease status post coronary artery bypass grafting x 4 in 11/2019, history of tobacco use, but discontinued smoking some 40 years ago. She also has axillary hypertension, very difficult to control. She denies any cardiac arrest. History of diabetes, diabetic neuropathy, vasculopathy, and nephropathy. History of mild renal insufficiency. Echocardiogram on 11/20/2024 shows normal left ventricular ejection fraction, EF greater than 55%. She denies any fever, chills, melena, hematochezia, hematemesis, or hemoptysis. It has been difficult to control her blood pressure. It is believed that the patient may benefit from renovascular denervation. Doppler of the carotid shows the patient to have greater than 80% narrowing of the right internal carotid artery. The patient is now to undergo carotid angiography. Risks and benefits were explained to the patient. CURRENT MEDICATIONS: Include Plavix, nifedipine, Entresto, and aspirin. PHYSICAL EXAMINATION: VITAL SIGNS: On physical examination, blood pressure is 140/82, pulse 70, and O2 saturation 98%. HEENT: Pupils are reactive. Funduscopic exam shows some AV nicking. No hard exudates. No papilledema. Sclerae anicteric. Extraocular muscle motions are intact. NECK: No JVD appreciated. Carotid pulses are 2+ symmetrical. Normal upstroke and contour. No cervical adenopathy. No supraclavicular adenopathy. Thyroid is within normal limits. PULMONARY: Clear to auscultation. Tympanic to percussion. No rhonchi. No wheezing. No egophony exhibited. CARDIOVASCULAR: Regular rate without S3, without S4. PMI is not displaced. ABDOMEN: Soft, nontender. Normal bowel sounds. No peripheral bruits appreciated as well. EXTREMITIES: Lower extremity shows 1+ pulses bilaterally. NEUROLOGIC: The patient is intact. DTRs are 2+ symmetrical. Cranial nerves 2-12 are within normal limits. Sensory and motor modalities are intact. ASSESSMENT AND PLAN: Thus, the patient with a high-grade narrowing of the carotid, right-sided with TIA symptoms, accelerated hypertension. We will continue all current medication and we will make further recommendations after carotid angiography. Risks and benefits were explained to the patient. Carlos Thurman MD SA/GEOVANNI RADFORD: 12/31/2024 10:46 AM TID: [id number] RECEIPT: [id number]
--- NOTE | 2024-12-31 12:55 | DVHDS ---
DISCHARGE DIAGNOSES: The patient with TIA, status post successful revascularization of the right internal carotid artery with stent placement. x 7 x 30 mm stent with conscious sedation was given. The patient clinically is stable at this time. No neurological deficit pre and post intervention. Blood pressure stabilized at this time. Continue all current medications. No changes are required. Dual-antiplatelet therapy will be used. Followup with me in 1 week. Stable at the time of discharge. DISPOSITION: Home. ACTIVITY: As instructed. DIET: Sodium diet 2 g. Carlos Thurman MD SA/JUSTINO/ASHLEY TID: [id number] RECEIPT: [id number]
[2024-12-31] MEDS ORDERED: DEXTROSE (50%) 50ML SYRG IV PRN (13:15)
[2024-12-31] MEDS: HYDROcodone-ACET 10/325MG TAB PO PRN (15:22)
[2024-12-31] MEDS: InsuLIN REG 1unit/0.01ml Soln (100units/ml) SC SCH (17:00)
[2024-12-31] MEDS: ACCU-CHEK COMFORT CURVE STRIP VI SCH (17:16)
[2024-12-31] MEDS: SACUBITRIL-VALSARTAN 24mg/26mg TAB PO SCH (21:50)
[2025-01-01 01:00] VITALS: BP 127/74; PULSE 61; RESP 18; TEMP 98.1; O2SAT 95
[2025-01-01 05:00] VITALS: BP 150/44; PULSE 69; RESP 18; TEMP 97.7; O2SAT 95
[2025-01-01 08:00] VITALS: PULSE 62; RESP 18; O2SAT 94
[2025-01-01 09:00] VITALS: BP 92/40; PULSE 62; RESP 18; TEMP 98.5; O2SAT 94
[2025-01-01] MEDS: ISOSORBIDE MONONITRATE ER 60 MG TAB PO SCH (10:00)
[2025-01-01] MEDS: THYROID 60 MG TAB PO SCH (10:25)
[2025-01-01] MEDS: CLOPIDOGREL BISULFATE 75 MG TAB PO SCH (10:25)
[2025-01-01 13:03] VITALS: BP 121/47; PULSE 61; RESP 18; TEMP 98.5; O2SAT 92
== END 2025-01-01 16:00 | disposition home or self-care (01) | DRG 36 ==
LOC: CATH 06:41 → OVERFLOW 10:06 → TELE-CENTR 15:30
PROVIDERS: ADMIT Internal Medicine Cardiovascular Disease; ATTEND Internal Medicine Cardiovascular Disease
PROC: 03CK0ZZ Extirpation of Matter from Right Internal Carotid Artery, Open Approach (ICD-10-PCS; principal; 2024-12-31)
PROC: 037K3DZ Dilation of Right Internal Carotid Artery with Intraluminal Device, Percutaneous Approach (ICD-10-PCS; 2024-12-31)
PROC: B3181ZZ Fluoroscopy of Bilateral Internal Carotid Arteries using Low Osmolar Contrast (ICD-10-PCS; 2024-12-31)
DX: G45.9 Transient cerebral ischemic attack, unspecified (principal); I10 Essential (primary) hypertension; E11.40 Type 2 diabetes mellitus with diabetic neuropathy, unspecified; I25.10 Atherosclerotic heart disease of native coronary artery without angina pectoris; E11.21 Type 2 diabetes mellitus with diabetic nephropathy; I25.2 Old myocardial infarction; Z95.1 Presence of aortocoronary bypass graft; Z87.891 Personal history of nicotine dependence
CPT/HCPCS: 0237T; 36223; 37215; 36415; 71046; 80048; 82962; 85025; 85610; 85730; 93005; 99152; G0378; G0463; J1815; J2250

== ENCOUNTER 2025-02-17 15:32 | Outpatient (CLI) | payer MEDICARE, BC | END 2025-02-17 17:00 | disposition home or self-care (01) | LOC: Rad HDHVI 15:32 | PROVIDERS: ATTEND Internal Medicine Cardiovascular Disease | DX: I10 Essential (primary) hypertension (principal) | CPT/HCPCS: 93880 ==